=== PATIENT | male | born 1990 ===

== ENCOUNTER → 2019-12-05 | Outpatient (REF) | payer OTHER | LOC: M LAB REF 16:21 | PROVIDERS: ATTEND Nurse Practitioner Family | DX: J02.9 Acute pharyngitis, unspecified (principal) ==

== ENCOUNTER → 2023-08-29 | Outpatient (REF) | payer OTHER | LOC: M LABWUC 16:03 | PROVIDERS: ATTEND Physician Assistant | DX: S40.862A Insect bite (nonvenomous) of left upper arm, initial encounter (principal) ==